=== PATIENT | male | born 1965 | race Caucasian/White ===

== ENCOUNTER 2023-11-17 08:47 | Day surgery (SDC) | payer OTHER ==
[~2023-11-17] VITALS: Ht 170.2 cm; Wt 75.8 kg
[~2023-11-17 08:47] MED LIST: CEPH500 PO; CeFAZolin Sodium 2,000 MG VIAL ONE; FINA5 PO; IBUP600 PO; Lactated Ringer's 1,000 ML IV ONE; Lidocaine 1%-Epineph 1:100000 20 ML MDV ONE; NS 50 ML IV ONE; TAMS.4ER PO; Tranexamic Acid 100 ML IV ONE
[2023-11-17] MEDS ORDERED: LISI20 PO (08:58)
[2023-11-17] MEDS ORDERED: METF500 PO (08:59)
[2023-11-17] MEDS ORDERED: Lactated Ringer's 1,000 ML IV ONE ×2 (09:16→11:04)
[2023-11-17] MEDS ORDERED: EPINEPhrine HCl 1 MG/ML 1ML Amp ONE (09:43)
[2023-11-17] MEDS ORDERED: Dexamethasone Sod Phos 10 MG/ML 1ML VIAL ONE (09:43)
[2023-11-17] MEDS ORDERED: Bupivacaine 0.5% HCl 5 MG/ML 30MLVIAL ONE (09:43)
[2023-11-17] MEDS ORDERED: Midazolam HCl 1MG / ML 2ML Vial ONE (09:43)
[2023-11-17] MEDS ORDERED: propofoL 20 ML IV ONE (10:00)
[2023-11-17] MEDS ORDERED: Glycopyrrolate 0.2 MG/ML 5ML VIAL ONE (10:04)
--- NOTE | 2023-11-17 10:05 | NUR ---
11/17/23 1005 Senait Wilson 0925: PRE-OP COMPLETED, PATIENT READY FOR SURGERY, NERVE BLOCK SUPPLIES READY 0927: DR GARCIA NOTIFIED BY LILIRN THAT PATIENT IS READY 0950: TIMEOUT FOR BLOCK PROCEDURE 0956: INJECTION TIME BY DR GARCIA 0959: BLOCK COMPLETED BY DR GARCIA
[2023-11-17] MEDS ORDERED: FentaNYL Citrate 50 MCG/ML 2 ML Injection ONE (10:15)
[2023-11-17] MEDS ORDERED: ePHEDrine Sulfate 50 MG/ML 1ML Injection ONE (10:58)
[2023-11-17] MEDS ORDERED: Ondansetron HCl 2 MG / ML 2ML Vial ONE (11:08)
[2023-11-17] MEDS ORDERED: Sugammadex Sodium 200 MG/2ML SDV (100 MG/ML) ONE (11:59)
--- NOTE | 2023-11-17 12:34 | NUR ---
11/17/23 1234 Bowie, Otilia O2 DECREASED TO 3L VIA NONREBREATHER PRIOR TO TRANSFER TO STEP DOWN. SPO2 AT 95%. RN JXP TO ADMINISTER ALBUTEROL NEBULIZER PER ANESTHESIA ORDERS UPON TRANSFER TO SDU DUE TO AUSCULTATION OF WHEEZES IN LUNGS POSTOPERATIVELY.
[2023-11-17] MEDS ORDERED: Albuterol 2.5 MG/3 ML VIAL ONE (12:36)
[2023-11-17 12:37] VITALS: BP 129/89
--- NOTE | 2023-11-17 13:32 | NUR ---
11/17/23 1332 Abby Diaz PT HAD NO NAUSEA OR PAIN. ATE SOME COOKIES AND HAD FLUIDS. HERE FOR DISCHARGE INSTRUCTIONS.
== END 2023-11-17 13:25 | disposition home or self-care (01) ==
LOC: ORSCSDS 08:47
PROVIDERS: Orthopaedic Surgery Sports Medicine
PROC: 0RBK4ZZ Excision of Left Shoulder Joint, Percutaneous Endoscopic Approach (ICD-10-PCS; principal; 2023-11-17 09:45)
PROC: 0RCK4ZZ Extirpation of Matter from Left Shoulder Joint, Percutaneous Endoscopic Approach (ICD-10-PCS; principal; 2023-11-17 09:45)
PROC: 0PQ Upper Bones, Repair (ICD-10-PCS; principal; 2023-11-17 09:45)
DX: M24.112 Other articular cartilage disorders, left shoulder (principal); M75.22 Bicipital tendinitis, left shoulder; M19.012 Primary osteoarthritis, left shoulder; M67.912 Unspecified disorder of synovium and tendon, left shoulder; I10 Essential (primary) hypertension; Z87.891 Personal history of nicotine dependence; E11.9 Type 2 diabetes mellitus without complications; Z79.84 Long term (current) use of oral hypoglycemic drugs; Z79.899 Other long term (current) drug therapy
CPT/HCPCS: 82947; J0171; J0690; J1100; J2250; J2405; J2704; J3010; J7120

== ENCOUNTER 2025-01-16 17:56 | Emergency (ER) | payer OTHER ==
[~2025-01-16] VITALS: Ht 170.2 cm; Wt 77.1 kg
[~2025-01-16 17:56] MED LIST changes: -CeFAZolin Sodium 2,000 MG VIAL ONE; +LISI20 PO; -Lactated Ringer's 1,000 ML IV ONE; -Lidocaine 1%-Epineph 1:100000 20 ML MDV ONE; +METF500 PO; -NS 50 ML IV ONE; -Tranexamic Acid 100 ML IV ONE
[2025-01-16 18:00] VITALS: BP 165/94
== END 2025-01-16 20:04 | disposition home or self-care (01) ==
LOC: ER 17:56
DX: S61.211A Laceration without foreign body of left index finger without damage to nail, initial encounter (principal); W26.8XXA Contact with other sharp object(s), not elsewhere classified, initial encounter; Z87.891 Personal history of nicotine dependence; Z88.2 Allergy status to sulfonamides; Z88.8 Allergy status to other drugs, medicaments and biological substances; Z79.84 Long term (current) use of oral hypoglycemic drugs; Z79.899 Other long term (current) drug therapy
CPT/HCPCS: 73140; 99283-25